=== PATIENT | female | born 1940 | race Caucasian/White ===

== ENCOUNTER 2016-08-28 17:32 | Observation (INO) | payer MEDICARE ==
[~2016-08-28] VITALS: Ht 154.9 cm; Wt 76.3 kg
[~2016-08-28 17:32] MED LIST: ADVAIR DISK2 IN; ADVAIR DISKU IN; ALBUTERO1 NEB; AMOXICILLIN/CL875 MG OR; ANTIVERT PO; ASPIRIN81 MG PO; CALCIUM600 M1 PO; CIPROFLOXACN500 MG OR; COUMADIN5 MG PO; CRESTOR10 MG PO; DARVOCET-N 100100 MG OR; DIGITEK0.25 MG PO; DULERA1 AE1; E 10001000 UNIT PO; FLORASTOR250 M1 PO; FUROSEMIDE20 MG PO; HYDROCHLOROT12.5 MG PO; LOPRESSOR 550 MG/TAB PO; MEDDOSEPAK OR; MEDDOSEPAK PO; METOPROL TAR25 MG PO; MULTIVITAMIN PO; NITROSTAT0.4 MG PO; PEPCID20 MG PO; POT CHLORIDE10 ME1 PO; PREDNISONE50 MG PO; PROAIR HFA IN; PROTONIX40 M2 PO; RANITIDINE150 MG PO; RANITIDINE75 M1 PO; SERTRALINE HCL25 MG PO; SERTRALINE25 MG OR; SIMVASTATIN20 MG OR; SINGLAIR 4 MG TA4 MG PO; SINGULAIR10 MG OR; VESICARE10 MG PO; WARFARIN2.5 MG PO; ZITHROMAX500 MG PO
[2016-08-28 19:15] LABS: HEMATOCRIT 41.1 % (37.0-47.0); HEMOGLOBIN 13.6 g/dl (12.0-16.0); IMMATURE GRANULOCYTES 0.3 % (0.0-1.0); MEAN CELL VOLUME 91.3 fL CALC (80.0-100.0); MEAN CORPUSCULAR HGB 30.2 pG CALC (26.0-32.0); MEAN CORPUSCULAR HGB CONC 33.1 g/L CALC (32.0-36.0); NEUT# 4.45 thou/uL (2.00-7.15); RED BLOOD COUNT 4.5 mill/uL (4.20-5.60)
[2016-08-28 19:28] LABS: ALBUMIN 4.4 g/dL (3.2-5.0); ALKALINE PHOSPHATASE 49 u/l (38-126); ANION GAP 18 (6-22 (CALC)); BILIRUBIN, TOTAL 0.6 mg/dL (0.0-1.4); BUN 26 mg/dL (8-23); BUN/CREATININE RATIO 32 (12-20 (CALC)); CALCIUM 9.1 mg/dL (8.4-10.2); CARBON DIOXIDE 27 mmol/l (22-30); CHLORIDE 103 mmol/l (95-108); CREATININE 0.8 mg/dL (0.5-1.0); GFR > 60 ML/MIN (>=60 (CALC)); GFR FOR AFR.AMER. > 60 ML/MIN (>=60 (CALC)); GLUCOSE 97 mg/dL (82-115); SGOT/AST 33 u/l (9-36); SGPT/ALT 31 u/l (11-66); SODIUM 144 mmol/l (137-146); TOTAL PROTEIN 7.2 g/dL (6.3-8.2)
[2016-08-28 19:35] LABS: INTERNATIONAL NORMALIZED RATIO 1.8 RATIO (0.7-1.3); PROTHROMBIN TIME 20.5 SECONDS (9.0-12.5)
[2016-08-28] MEDS ORDERED: VESICARE10 MG PO (19:38)
[2016-08-28 19:39] LABS: MYOGLOBIN 33 ng/mL (0 - 62)
[2016-08-28] MEDS ORDERED: METOPROL TAR25 MG PO (19:39)
[2016-08-28] MEDS ORDERED: LASIX 20 MG20 MG/TAB PO (19:40)
[2016-08-28] MEDS ORDERED: KLOR-CON M1010 MEQ PO (19:43)
[2016-08-28 22:06] VITALS: BP 144/86
[2016-08-29 00:02] VITALS: BP 106/76
[2016-08-29 03:55] VITALS: BP 121/79
[2016-08-29 06:20] LABS: INTERNATIONAL NORMALIZED RATIO 1.8 RATIO (0.7-1.3); PROTHROMBIN TIME 20.3 SECONDS (9.0-12.5)
[2016-08-29 06:26] LABS: ANION GAP 14 (6-22 (CALC)); BUN 21 mg/dL (8-23); BUN/CREATININE RATIO 29 (12-20 (CALC)); CALCIUM 8.9 mg/dL (8.4-10.2); CARBON DIOXIDE 26 mmol/l (22-30); CHLORIDE 103 mmol/l (95-108); CREATININE 0.7 mg/dL (0.5-1.0); GFR > 60 ML/MIN (>=60 (CALC)); GFR FOR AFR.AMER. > 60 ML/MIN (>=60 (CALC)); GLUCOSE 115 mg/dL (82-115); POTASSIUM 3.6 mmol/l (3.5-5.1); SODIUM 140 mmol/l (137-146)
[2016-08-29 06:29] LABS: CHOLESTEROL HDL RATIO 3.7 (<4.4 (CALC))
[2016-08-29 07:24] VITALS: BP 113/70
[2016-08-29] MEDS ORDERED: ISOSORBIDE MONO30 MG PO (12:29)
[2016-08-29 12:39] VITALS: BP 112/60
== END 2016-08-29 13:00 | disposition home or self-care (01) ==
LOC: ENPENDDIS → ED 17:32 → ED-I 20:00 → ED 20:39 → ICU 20:40
PROVIDERS: Emergency Medicine; Internal Medicine; ADMIT Internal Medicine; ATTEND Internal Medicine
DX: I25.110 Atherosclerotic heart disease of native coronary artery with unstable angina pectoris (principal); I11.9 Hypertensive heart disease without heart failure; I48.0 Paroxysmal atrial fibrillation; I08.3 Combined rheumatic disorders of mitral, aortic and tricuspid valves; E66.9 Obesity, unspecified; E78.5 Hyperlipidemia, unspecified; J44.9 Chronic obstructive pulmonary disease, unspecified; Z85.41 Personal history of malignant neoplasm of cervix uteri; Z87.891 Personal history of nicotine dependence; Z82.49 Family history of ischemic heart disease and other diseases of the circulatory system; Z79.01 Long term (current) use of anticoagulants; Z68.31 Body mass index [BMI] 31.0-31.9, adult

== ENCOUNTER 2017-02-22 10:25 | Observation (INO) | payer MEDICARE ==
[~2017-02-22] VITALS: Ht 154.9 cm; Wt 76.5 kg
[~2017-02-22 10:25] MED LIST changes: +ISOSORBIDE MONO30 MG PO; +KLOR-CON M1010 MEQ PO; +LASIX 20 MG20 MG/TAB PO
[2017-02-22] MEDS ORDERED: WARFARIN1 MG PO ×2 (10:54→10:55)
[2017-02-22 11:05] LABS: HEMATOCRIT 40.3 % (37.0-47.0); HEMOGLOBIN 13.3 g/dl (12.0-16.0); IMMATURE GRANULOCYTES 0.2 % (0.0-1.0); MEAN CELL VOLUME 92.2 fL CALC (80.0-100.0); MEAN CORPUSCULAR HGB 30.4 pG CALC (26.0-32.0); NEUT# 2.99 thou/uL (2.00-7.15); RED BLOOD COUNT 4.37 mill/uL (4.20-5.60); RED CELL DISTRI WIDTH 12.2 % (11.5-15.5)
[2017-02-22 11:17] LABS: ALBUMIN 4.1 g/dL (3.2-5.0); ALKALINE PHOSPHATASE 64 u/l (38-126); ANION GAP 15 (6-22 (CALC)); BILIRUBIN, TOTAL 0.6 mg/dL (0.0-1.4); BUN 18 mg/dL (8-23); BUN/CREATININE RATIO 26 (12-20 (CALC)); CALCIUM 9.4 mg/dL (8.4-10.2); CARBON DIOXIDE 28 mmol/l (22-30); CHLORIDE 105 mmol/l (95-108); CREATININE 0.7 mg/dL (0.5-1.0); GFR > 60 ML/MIN (>=60 (CALC)); GFR FOR AFR.AMER. > 60 ML/MIN (>=60 (CALC)); GLUCOSE 107 mg/dL (82-115); POTASSIUM 3.9 mmol/l (3.5-5.1); SGOT/AST 28 u/l (9-36); SGPT/ALT 22 u/l (11-66); SODIUM 144 mmol/l (137-146); TOTAL PROTEIN 6.4 g/dL (6.3-8.2)
[2017-02-22 11:22] LABS: PROTHROMBIN TIME 22.8 SECONDS (9.0-12.5)
[2017-02-22 11:29] LABS: MYOGLOBIN 38 ng/mL (0 - 62)
[2017-02-22 11:35] LABS: URINE BILIRUBIN - DIPSTICK NEGATIVE (NEGATIVE); URINE BLOOD DIPSTICK NEGATIVE (NEGATIVE); URINE COLOR YELLOW; URINE GLUCOSE - DIPSTICK NEGATIVE (NEGATIVE); URINE KETONE NEGATIVE (NEGATIVE); URINE LEUK ESTERASE NEGATIVE (NEGATIVE); URINE NITRITE - DIPSTICK NEGATIVE (Negative); URINE PH 6.5 (4.5-8.0); URINE PROTEIN - DIPSTICK NEGATIVE (NEG-TRACE); URINE UROBILINOGEN - DIPSTICK 0.2 E.U./dL (0.2)
[2017-02-22 11:39] LABS: URINE CLARITY CLEAR
[2017-02-22 19:05] VITALS: BP 130/70
[2017-02-23 00:10] VITALS: BP 119/64
[2017-02-23 04:05] VITALS: BP 116/64
[2017-02-23 06:15] LABS: HEMATOCRIT 40.3 % (37.0-47.0); HEMOGLOBIN 12.9 g/dl (12.0-16.0); MEAN CELL VOLUME 94.2 fL CALC (80.0-100.0); MEAN CORPUSCULAR HGB 30.1 pG CALC (26.0-32.0); RED BLOOD COUNT 4.28 mill/uL (4.20-5.60); RED CELL DISTRI WIDTH 12.2 % (11.5-15.5)
[2017-02-23 06:21] LABS: ANION GAP 13 (6-22 (CALC)); BUN 20 mg/dL (8-23); BUN/CREATININE RATIO 24 (12-20 (CALC)); CALCULATED LDLCHOLESTEROL 61 mg/dL (62-129 (CALC)); CARBON DIOXIDE 29 mmol/l (22-30); CHLORIDE 107 mmol/l (95-108); CREATININE 0.8 mg/dL (0.5-1.0); GFR > 60 ML/MIN (>=60 (CALC)); GFR FOR AFR.AMER. > 60 ML/MIN (>=60 (CALC)); GLUCOSE 106 mg/dL (82-115); HDL CHOLESTEROL 49 mg/dL (>=40); POTASSIUM 4.4 mmol/l (3.5-5.1); SODIUM 144 mmol/l (137-146); TOTAL CHOLESTEROL 146 mg/dl (0-199); TOTAL TRIGLYCERIDES 182 mg/dl (30-149); VLDL CHOLESTROL 36 mg/dl (0-48 (CALC))
[2017-02-23 06:22] LABS: INTERNATIONAL NORMALIZED RATIO 1.9 RATIO (0.7-1.3)
[2017-02-23 09:00] VITALS: BP 119/61
[2017-02-23 10:57] VITALS: BP 117/74
[2017-02-23] MEDS ORDERED: ELIQUIS5 MG PO (15:07)
== END 2017-02-23 15:45 | disposition home or self-care (01) ==
LOC: ED 10:25 → ED-I 12:38 → ED 13:14 → MS2 13:15
PROVIDERS: Emergency Medicine; Internal Medicine; ADMIT Internal Medicine; ATTEND Internal Medicine
DX: R41.82 Altered mental status, unspecified (principal); R47.1 Dysarthria and anarthria; R42 Dizziness and giddiness; H53.8 Other visual disturbances; I48.0 Paroxysmal atrial fibrillation; E78.5 Hyperlipidemia, unspecified; J44.9 Chronic obstructive pulmonary disease, unspecified; Z85.41 Personal history of malignant neoplasm of cervix uteri; Z87.891 Personal history of nicotine dependence; Z79.01 Long term (current) use of anticoagulants

== ENCOUNTER 2018-12-22 14:41 | Emergency (ER) | payer MEDICARE ==
[~2018-12-22] VITALS: Ht 154.9 cm; Wt 85.0 kg
[~2018-12-22 14:41] MED LIST changes: +ELIQUIS5 MG PO; +WARFARIN1 MG PO
[2018-12-22 15:21] LABS: IMMATURE GRANULOCYTES 0.7 % (0.0-5.0); MEAN CORPUSCULAR HGB 28.4 pG CALC (26.0-32.0); MEAN CORPUSCULAR HGB CONC 33.1 g/L CALC (32.0-36.0); NEUT# 3.36 thou/uL (2.00-7.15); RED BLOOD COUNT 5.5 mill/uL (4.20-5.60); RED CELL DISTRI WIDTH 12.5 % (11.5-15.5)
[2018-12-22 15:22] LABS: HEMATOCRIT 47.2 % (37.0-47.0); HEMOGLOBIN 15.6 g/dl (12.0-16.0); MEAN CELL VOLUME 85.8 fL CALC (80.0-100.0)
[2018-12-22 15:46] LABS: BUN 22 mg/dL (8-23); BUN/CREATININE RATIO 25 (12-20 (CALC)); CREATININE 0.9 mg/dL (0.5-1.0); GFR > 60 ML/MIN (>=60 (CALC)); GFR FOR AFR.AMER. > 60 ML/MIN (>=60 (CALC))
[2018-12-22 15:51] LABS: ANION GAP 14 (6-22 (CALC)); CARBON DIOXIDE 39 mmol/l (22-30); CHLORIDE 74 mmol/l (95-108); POTASSIUM 2.6 mmol/l (3.5-5.1); SODIUM 124 mmol/l (137-146)
[2018-12-22] MEDS ORDERED: MUCINEX600 MG PO (18:52)
[2018-12-22] MEDS ORDERED: ELIQUIS5 MG PO (18:52)
[2018-12-22] MEDS ORDERED: BUMETANIDE2 MG PO (18:53)
[2018-12-22] MEDS ORDERED: ASPIRIN81 MG PO (18:54)
[2018-12-22] MEDS ORDERED: CIPROFLOXACN500 MG PO (18:54)
[2018-12-22] MEDS ORDERED: PROTONIX40 M2 PO (18:56)
[2018-12-22] MEDS ORDERED: DIGOXIN0.125 MG PO (18:56)
[2018-12-22] MEDS ORDERED: EQL CLEARLAX PO (18:57)
[2018-12-22] MEDS ORDERED: ROSUVASTATIN CA10 MG PO (18:58)
[2018-12-22 20:51] VITALS: BP 128/64
== END 2018-12-22 20:50 | disposition short-term general hospital (02) ==
LOC: ED 14:41 → ED-I 16:18 → ED 20:50
PROVIDERS: Family Medicine
PROC: 0T9B70Z Drainage of Bladder with Drainage Device, Via Natural or Artificial Opening (ICD-10-PCS; principal; 2018-12-22)
PROC: 02HV33Z Insertion of Infusion Device into Superior Vena Cava, Percutaneous Approach (ICD-10-PCS; 2018-12-22)
DX: I50.9 Heart failure, unspecified (principal); J44.1 Chronic obstructive pulmonary disease with (acute) exacerbation; E87.6 Hypokalemia; E87.1 Hypo-osmolality and hyponatremia; I25.2 Old myocardial infarction; Z95.1 Presence of aortocoronary bypass graft
CPT/HCPCS: J3475; Q9967

== ENCOUNTER 2018-12-30 16:03 | Inpatient (IN) | payer MEDICARE ==
[~2018-12-30] VITALS: Ht 149.9 cm; Wt 70.0 kg
[2018-12-30] VITALS (7 sets, daily range): BP systolic 106–125; BP diastolic 53–73
[~2018-12-30 16:03] MED LIST changes: +BUMETANIDE2 MG PO; +CIPROFLOXACN500 MG PO; +DIGOXIN0.125 MG PO; +EQL CLEARLAX PO; +MUCINEX600 MG PO; +ROSUVASTATIN CA10 MG PO
[2018-12-30 17:57] LABS: IMMATURE GRANULOCYTES 1.3 % (0.0-5.0); MEAN CELL VOLUME 85.1 fL CALC (80.0-100.0); MEAN CORPUSCULAR HGB 29.1 pG CALC (26.0-32.0); MEAN CORPUSCULAR HGB CONC 34.2 g/L CALC (32.0-36.0); NEUT# 9.95 thou/uL (2.00-7.15); RED BLOOD COUNT 3.16 mill/uL (4.20-5.60); RED CELL DISTRI WIDTH 12.6 % (11.5-15.5)
[2018-12-30 17:59] LABS: HEMATOCRIT 26.9 % (37.0-47.0); HEMOGLOBIN 9.2 g/dl (12.0-16.0)
[2018-12-30 18:13] LABS: ALBUMIN 3.9 g/dL (3.2-5.0); CREATININE 1.2 mg/dL (0.5-1.0); MAGNESIUM 1.8 mg/dL (1.6-2.3); TOTAL PROTEIN 6.8 g/dL (6.3-8.2)
[2018-12-30 18:28] LABS: BILIRUBIN, TOTAL 1.3 mg/dL (0.0-1.4); POTASSIUM 2.2 mmol/l (3.5-5.1)
[2018-12-30 18:43] LABS: TSH, 3RD GENERATION 0.84 uIU/mL (0.47 - 4.68)
[2018-12-30 23:53] LABS: POTASSIUM 2.1 mmol/l (3.5-5.1)
[2018-12-31] VITALS (21 sets, daily range): BP systolic 86–121; BP diastolic 42–64
[2018-12-31 05:01] LABS: HEMATOCRIT 28.1 % (37.0-47.0); HEMOGLOBIN 9.4 g/dl (12.0-16.0); IMMATURE GRANULOCYTES 1.4 % (0.0-5.0); MEAN CELL VOLUME 85.9 fL CALC (80.0-100.0); MEAN CORPUSCULAR HGB 28.7 pG CALC (26.0-32.0); MEAN CORPUSCULAR HGB CONC 33.5 g/L CALC (32.0-36.0); NEUT# 8.67 thou/uL (2.00-7.15); RED BLOOD COUNT 3.27 mill/uL (4.20-5.60); RED CELL DISTRI WIDTH 12.5 % (11.5-15.5)
[2018-12-31 05:16] LABS: ALBUMIN 3.3 g/dL (3.2-5.0); BILIRUBIN, TOTAL 1.1 mg/dL (0.0-1.4); CREATININE 1.1 mg/dL (0.5-1.0); POTASSIUM 2.6 mmol/l (3.5-5.1); TOTAL PROTEIN 6.1 g/dL (6.3-8.2)
[2018-12-31 13:42] LABS: ALBUMIN 3.3 g/dL (3.2-5.0); BUN 27 mg/dL (8-23); CARBON DIOXIDE 34 mmol/l (22-30); CHLORIDE 79 mmol/l (95-108); CREATININE 0.9 mg/dL (0.5-1.0); GFR > 60 ML/MIN (>=60 (CALC)); GFR FOR AFR.AMER. > 60 ML/MIN (>=60 (CALC)); POTASSIUM 3.9 mmol/l (3.5-5.1); SODIUM 124 mmol/l (137-146)
[2019-01-01] VITALS (22 sets, daily range): BP systolic 93–122; BP diastolic 47–77
[2019-01-01 05:23] LABS: ALBUMIN 3.1 g/dL (3.2-5.0); BUN 22 mg/dL (8-23); CARBON DIOXIDE 38 mmol/l (22-30); CHLORIDE 83 mmol/l (95-108); CREATININE 0.9 mg/dL (0.5-1.0); GFR > 60 ML/MIN (>=60 (CALC)); GFR FOR AFR.AMER. > 60 ML/MIN (>=60 (CALC)); SODIUM 130 mmol/l (137-146)
[2019-01-02] VITALS (12 sets, daily range): BP systolic 98–126; BP diastolic 50–85
[2019-01-02 05:41] LABS: HEMOGLOBIN 7.7 g/dl (12.0-16.0); MEAN CORPUSCULAR HGB 28.7 pG CALC (26.0-32.0); MEAN CORPUSCULAR HGB CONC 30.8 g/L CALC (32.0-36.0); RED BLOOD COUNT 2.68 mill/uL (4.20-5.60); RED CELL DISTRI WIDTH 13.2 % (11.5-15.5)
[2019-01-02 05:50] LABS: ANION GAP 10 (6-22 (CALC)); BUN 22 mg/dL (8-23); BUN/CREATININE RATIO 30 (12-20 (CALC)); CARBON DIOXIDE 37 mmol/l (22-30); CHLORIDE 89 mmol/l (95-108); CREATININE 0.8 mg/dL (0.5-1.0); GFR > 60 ML/MIN (>=60 (CALC)); GFR FOR AFR.AMER. > 60 ML/MIN (>=60 (CALC)); MAGNESIUM 1.9 mg/dL (1.6-2.3); SODIUM 132 mmol/l (137-146)
[2019-01-02 05:53] LABS: POTASSIUM 3.7 mmol/l (3.5-5.1)
[2019-01-02 05:58] LABS: MEAN CELL VOLUME 93.3 fL CALC (80.0-100.0)
[2019-01-03 05:44] VITALS: BP 150/66
[2019-01-03 05:56] LABS: HEMATOCRIT 30.3 % (37.0-47.0); HEMOGLOBIN 9.6 g/dl (12.0-16.0); MEAN CELL VOLUME 92.7 fL CALC (80.0-100.0); MEAN CORPUSCULAR HGB 29.4 pG CALC (26.0-32.0); MEAN CORPUSCULAR HGB CONC 31.7 g/L CALC (32.0-36.0); RED BLOOD COUNT 3.27 mill/uL (4.20-5.60); RED CELL DISTRI WIDTH 13.2 % (11.5-15.5)
[2019-01-03 06:11] LABS: ANION GAP 10 (6-22 (CALC)); BUN 26 mg/dL (8-23); BUN/CREATININE RATIO 36 (12-20 (CALC)); CARBON DIOXIDE 38 mmol/l (22-30); CHLORIDE 90 mmol/l (95-108); CREATININE 0.7 mg/dL (0.5-1.0); GFR > 60 ML/MIN (>=60 (CALC)); GFR FOR AFR.AMER. > 60 ML/MIN (>=60 (CALC)); POTASSIUM 3.7 mmol/l (3.5-5.1); SODIUM 134 mmol/l (137-146)
[2019-01-03 07:34] VITALS: BP 126/65
[2019-01-03 11:00] VITALS: BP 123/64
[2019-04-07] MEDS ORDERED: MEDDOSEPAK PO (09:11)
== END 2019-01-03 14:19 | disposition home health service (06) | DRG 641 ==
LOC: ED 16:03 → ED-I 19:10 → ED 19:25 → MS2 19:26 → ICU 21:19 → MS2 01-02 11:20
PROVIDERS: Family Medicine; Internal Medicine; Internal Medicine Nephrology; ADMIT Internal Medicine; ATTEND Internal Medicine
PROC: 30233N1 Transfusion of Nonautologous Red Blood Cells into Peripheral Vein, Percutaneous Approach (ICD-10-PCS; principal; 2019-01-02)
DX: E87.1 Hypo-osmolality and hyponatremia (principal); N17.9 Acute kidney failure, unspecified; I50.22 Chronic systolic (congestive) heart failure; E87.6 Hypokalemia; D64.9 Anemia, unspecified; I11.0 Hypertensive heart disease with heart failure; I50.9 Heart failure, unspecified; I48.0 Paroxysmal atrial fibrillation; E87.3 Alkalosis; T50.1X5A Adverse effect of loop [high-ceiling] diuretics, initial encounter; E78.5 Hyperlipidemia, unspecified; I25.2 Old myocardial infarction; J44.9 Chronic obstructive pulmonary disease, unspecified; Z95.3 Presence of xenogenic heart valve; E87.8 Other disorders of electrolyte and fluid balance, not elsewhere classified; Z79.01 Long term (current) use of anticoagulants; Z87.891 Personal history of nicotine dependence; I10 Essential (primary) hypertension
CPT/HCPCS: P9016

== ENCOUNTER 2019-01-28 06:54 | Observation (INO) | payer MEDICARE ==
[~2019-01-28] VITALS: Ht 149.9 cm; Wt 66.0 kg
--- NOTE | 2019-01-28 06:54 | NUR ---
PT TO ROOM FOR TRIAGE AND ASSESSMENT; PT C/O YOCASTA MIDSTERNAL CP RATING 10 OUT OF 10; LABORED RAPID BREATHING NOTED; MONITORING DEVICES APPLIED; EKG COMPLETED AND DR WHALEY AT BEDSIDE FOR ASSESSMENT; IV INITIATED TO LAC; WILL CONTINUE TO MONITOR
--- NOTE | 2019-01-28 07:20 | NUR ---
PT MEDICATED PER MAR; PT STATES PAIN IS NOW A 2 OUT OF 10; VSS; SPOUSE AT BEDSIDE; WILL CONTINUE TO MONITOR
[2019-01-28 07:33] LABS: HEMATOCRIT 31.7 % (37.0-47.0); HEMOGLOBIN 10.1 g/dl (12.0-16.0); IMMATURE GRANULOCYTES 0.5 % (0.0-5.0); MEAN CELL VOLUME 90.6 fL CALC (80.0-100.0); MEAN CORPUSCULAR HGB 28.9 pG CALC (26.0-32.0); MEAN CORPUSCULAR HGB CONC 31.9 g/L CALC (32.0-36.0); NEUT# 8.81 thou/uL (2.00-7.15); RED BLOOD COUNT 3.5 mill/uL (4.20-5.60); RED CELL DISTRI WIDTH 13.5 % (11.5-15.5)
[2019-01-28 07:47] LABS: ANION GAP 14 (6-22 (CALC)); BUN 14 mg/dL (8-23); BUN/CREATININE RATIO 18 (12-20 (CALC)); CARBON DIOXIDE 26 mmol/l (22-30); CHLORIDE 101 mmol/l (95-108); CREATININE 0.8 mg/dL (0.5-1.0); GFR > 60 ML/MIN (>=60 (CALC)); GFR FOR AFR.AMER. > 60 ML/MIN (>=60 (CALC)); POTASSIUM 3.6 mmol/l (3.5-5.1); SODIUM 137 mmol/l (137-146)
--- NOTE | 2019-01-28 08:20 | NUR ---
PT RESTING ON STRETCHER; PT APPEARS MORE COMPFRTABLE AT THIS TIME; BREATHING EVEN AND UNLABORED; VSS; PT DENIES ANY CP AT THIS TIME
--- NOTE | 2019-01-28 09:20 | NUR ---
PT RESTING QUIETLY ON STRETCHER; NO S/S OF DISTRESS NOTED; PT DENIES CP AT THIS TIME; AWARE OF POC TO ADMIT; PT AND FAMILY AGREEABLE; VSS; PT DENIES ANY NEEDS AT THIS TIME
--- NOTE | 2019-01-28 10:03 | NUR ---
REPORT CALLED TO BRODIE STOREY
[2019-01-28 10:20] VITALS: BP 126/63
--- NOTE | 2019-01-28 10:20 | NUR ---
Admission Note Report Given to: BRODIE STOREY Transported by: Wheelchair X Stretcher Transported with: X Nurse Transporter X Patent IV X O2 X [place] Machine Operator Helper
--- NOTE | 2019-01-28 10:20 | NUR ---
PT ARRIVED TO ICU 6 VIA STRETCHER ACCOMPANIED BY ER NURSE. PTABLE TO AMBULATE WITH MINIMAL ASSIST TO BED. PT THEN ASSISTED TO BATHROOM TO VOID AND ASSISTED BACK TO BED. PT IS ALERT AND ORIENTED X3. ADMISSION ASSESSMENT COMPLETED AT THIS TIME. PT ADDMITTED FOR CHEST PAIN. DENIES CHEST PAIN AT THIS TIME. IV PATENT X1. ORIENTED PT TO ROOM AND UNIT. CALL LIGHT IN REACH. WILL CONTINUE TO MONITOR.
--- NOTE | 2019-01-28 11:30 | NUR ---
PT SET UP FOR NOON MEAL
--- NOTE | 2019-01-28 11:53 | NUR ---
LAB AT BEDSIDE FOR TROPONIN DRAW
[2019-01-28 14:30] VITALS: BP 127/70
--- NOTE | 2019-01-28 16:23 | NUR ---
PT RESTING IN BED WATCHING TV. RESP ARE EVEN AND UNLABORED. NO DISTRESS NOTED. CALL LIGHT IN REACH. WILL CONTINUE TO MONITOR.
--- NOTE | 2019-01-28 17:43 | NUR ---
PT SET UP FOR [PM MEAL
--- NOTE | 2019-01-28 18:07 | NUR ---
LAB AT BEDSIDE AT THIS TIME
--- NOTE | 2019-01-28 18:14 | NUR ---
DR FALCON AT BEDSIDE AT THIS TIME
--- NOTE | 2019-01-28 19:10 | NUR ---
REPORT RECEIVED FROM BRODIE STOREY. PT SITTING UP IN BED WATCHING TV; ALERT AND ORIENTED. DENIES PAIN CURRENTLY. RESPIRATIONS EVEN AND UNLABORED ON 2L VIA NC; OXYGEN REMOVED AND PT SPO2 IS 96% ON ROOM AIR; WILL LEAVE ON ROOM AIR AND MONITOR. ASSESSMENT COMPLETED AT THIS TIME; LUNGS ARE DIMINISHED. PT HAS A COUGH THAT SHE REPORTS HAS BEEN PRODUCTIVE WITH WHITE THICK MUCUS; HEART RATE IRREGULAR; OTHERWISE ASSESSMENT IS NEGATIVE. PT UP TO AMBULATE INDEPENDENTLY TO BATHROOM AND BACK INTO BED. PLAN OF CARE REVIEWED. PT ENCOURAGED TO VERBALIZE CONCERNS. STATES UNDERSTANDING. SAFETY MEASURES IN PLACE. CALL LIGHT WITHIN REACH.
[2019-01-28 20:00] VITALS: BP 132/71
[2019-01-28 22:00] VITALS: BP 145/76
--- NOTE | 2019-01-28 22:44 | NUR ---
HOME MED ORDERS RECEIVED; METOPROLOL AND ELIQUIS GIVEN. PT CURRENTLY NSR WITH IVCD ON TELEMETRY HR IN THE 70S. PT HAS NO REQUESTS OR CONCERNS AT THIS ITME.
[2019-01-29] VITALS: BP 129/80
--- NOTE | 2019-01-29 00:20 | NUR ---
LAB AT BEDSIDE FOR TROPONIN.
[2019-01-29 02:00] VITALS: BP 127/70
--- NOTE | 2019-01-29 03:51 | NUR ---
PT ASLEEP WITH NO SIGNS OF DISTRESS. RESPIRATIONS EVEN UNLABORED ON ROOM AIR; SP02 96%. USES CALL LIGHT PRN FOR ASSISTANCE AND AMBULATES TO THE BATHROOM. SAFETY MEASURES IN PLACE. CALL LIGHT WITHIN REACH.
[2019-01-29 04:00] VITALS: BP 145/78
[2019-01-29 06:00] VITALS: BP 140/77
--- NOTE | 2019-01-29 06:45 | NUR ---
RECIEVED REPORT FROM BRODIE WHITE. ASSUMED PT CARE.
[2019-01-29 08:00] VITALS: BP 152/79
--- NOTE | 2019-01-29 08:00 | NUR ---
PT RESTING IN BED. A&OX4. ABLE TO MAKE NEEDS KNOWN. PT DENIES CP, SOB OR DISTRESS AT THIS TIME. PT STATED SHE IS READY TO GO HOME. SR ON TELEMETRY WITH 1* AVB, HR 88. RESPIRATIONS EVEN/UNLABORED, SA02@95%RA, LS WITH EXP WHEEZING THROUGHOUT. ABDOMEN SOFT, NON-TENDER, BSX4 ACTIVE, LBM 11-20-19. CALL LIGHT IN REACH. WILL MONITOR.
[2019-01-29 09:12] VITALS: BP 152/79
--- NOTE | 2019-01-29 09:30 | NUR ---
DR. FALCON AT BEDSIDE FOR ASSESSMENT AND TO DISCUSS PLAN OF CARE. NEW ORDERS RECIEVED. WILL MONITOR.
[2019-01-29] MEDS ORDERED: PREDNISONE10 MG PO (09:32)
[2019-01-29] MEDS ORDERED: ZITHROMAX500 MG PO (09:32)
--- NOTE | 2019-01-29 11:00 | NUR ---
IV site discontinued, cath intact. No edema , no redness, voices no discomfort.
--- NOTE | 2019-01-29 11:49 | NUR ---
Discharge instructions given. Patient verbalizes understanding of same. Discharged in stable condition via Wheelchair to Home with family. All belongings sent with pt. PAPER PRESCRIPTIONS SENT HOME WITH PT.
[2019-04-07] MEDS ORDERED: MEDDOSEPAK PO (09:11)
== END 2019-01-29 11:49 | disposition home or self-care (01) ==
LOC: ED 06:54 → ED-I 08:09 → ED 08:22 → ICU 08:23
PROVIDERS: Family Medicine; ADMIT Internal Medicine; ATTEND Internal Medicine
DX: I48.0 Paroxysmal atrial fibrillation (principal); R07.89 Other chest pain; J44.1 Chronic obstructive pulmonary disease with (acute) exacerbation; I11.0 Hypertensive heart disease with heart failure; I50.9 Heart failure, unspecified; E78.5 Hyperlipidemia, unspecified; I25.10 Atherosclerotic heart disease of native coronary artery without angina pectoris; I25.2 Old myocardial infarction; Z99.81 Dependence on supplemental oxygen; Z95.3 Presence of xenogenic heart valve; Z79.01 Long term (current) use of anticoagulants; Z87.891 Personal history of nicotine dependence

== ENCOUNTER 2019-04-06 09:34 | Observation (INO) | payer MEDICARE ==
[~2019-04-06] VITALS: Ht 154.9 cm; Wt 67.2 kg
[~2019-04-06 09:34] MED LIST changes: +PREDNISONE10 MG PO
--- NOTE | 2019-04-06 09:38 | NUR ---
PT TO ROOM VIA WHEELCHAIR.
[2019-04-06 10:03] LABS: IMMATURE GRANULOCYTES 0.2 % (0.0-5.0); MEAN CORPUSCULAR HGB 28.8 pG CALC (26.0-32.0); MEAN CORPUSCULAR HGB CONC 31.7 g/L CALC (32.0-36.0); NEUT# 2.99 thou/uL (2.00-7.15); RED BLOOD COUNT 4.23 mill/uL (4.20-5.60); RED CELL DISTRI WIDTH 13.2 % (11.5-15.5)
[2019-04-06 10:08] LABS: HEMATOCRIT 38.5 % (37.0-47.0); HEMOGLOBIN 12.2 g/dl (12.0-16.0)
--- NOTE | 2019-04-06 10:10 | NUR ---
GA COMPLAINS OF STERNAL CHEST PAIN STARTING AT 0100 UNRELIEVED BY NTG. SKIN PINK WARM AND DRY. PT AO X 3. PT HAS COPD AND REPORTS THAT HER COUGH AND BREATHING ARE NO WORSE THAN USUAL. AMBULATORY TO ROOM WITHOUT DIFFICULTY. AT BEDSIDE. CHEST PAIN CURRENTLY 10/18
[2019-04-06 10:23] LABS: ALKALINE PHOSPHATASE 69 u/l (38-126); ANION GAP 12 (6-22 (CALC)); BUN 17 mg/dL (8-23); BUN/CREATININE RATIO 18 (12-20 (CALC)); CARBON DIOXIDE 29 mmol/l (22-30); CHLORIDE 104 mmol/l (95-108); CREATININE 0.9 mg/dL (0.5-1.0); GFR > 60 ML/MIN (>=60 (CALC)); GFR FOR AFR.AMER. > 60 ML/MIN (>=60 (CALC)); POTASSIUM 3.3 mmol/l (3.5-5.1); SGOT/AST 24 u/l (9-36); SODIUM 141 mmol/l (137-146); TOTAL PROTEIN 7.1 g/dL (6.3-8.2)
[2019-04-06 10:33] LABS: ALBUMIN 4.2 g/dL (3.2-5.0); BILIRUBIN, TOTAL 0.5 mg/dL (0.0-1.4)
[2019-04-06 10:37] LABS: MYOGLOBIN 34 ng/mL (0 - 62)
--- NOTE | 2019-04-06 11:05 | NUR ---
MD AWARE THAT LABS ARE BACK. PT MEDICATED FOR PAIN AND POSITIONED FOR COMFORT.
[2019-04-06] MEDS ORDERED: VESICARE10 MG PO (11:24)
--- NOTE | 2019-04-06 11:35 | NUR ---
PT AWARE THAT SHE WILL BE STAYING IN THE HOSPITAL. PURSE GIVEN TO . CLOTHING SENT TO ROOM WITH PATIENT. PT REPORTS MODERATE PAIN RELIEF AFTER TORADOL
--- NOTE | 2019-04-06 12:55 | NUR ---
MED SURG UNABLE TO TAKE REPORT AT THIS TIME
--- NOTE | 2019-04-06 12:55 | NUR ---
PT RESTING COMFORTABLY. WAITING ADMISSION
--- NOTE | 2019-04-06 13:00 | NUR ---
pt aware of awaiting transport to [facility]
--- NOTE | 2019-04-06 13:13 | NUR ---
CALLED REPORT TO [facility] RAMIREZ [facility]
--- NOTE | 2019-04-06 13:20 | NUR ---
Admission Note Report Given to: ASHLEY DIANE Transported by: X Wheelchair Stretcher Transported with: X Nurse Transporter X Patent IV O2 X Quote Clerk Location: ICU X [facility] PT TO ROOM 282 IN STABLE CONDITION. BEDSIDE HANDOFF TO ASHLEY DIANE.
[2019-04-06 13:30] VITALS: BP 167/88
--- NOTE | 2019-04-06 13:30 | NUR ---
PT ARRIVED VIA WC WITH STAFF. IV AND TELE MONITOR IN PLACE.
--- NOTE | 2019-04-06 14:30 | NUR ---
ASSESSMENT IS COMPLTED: IV SITE IS FREE FROM REDNESS OR EDEMA. HR IS REG,PULSES ARE STRONG X4, ABD IS SOFT WITH ACTIVE BS. BREATH SOUNDS ARE CLER, BILATERALLY, NO DISTRESS NOTED. TELE MONITOR IN PLACE.
[2019-04-06 15:26] VITALS: BP 125/73
[2019-04-06 18:50] VITALS: BP 173/77
--- NOTE | 2019-04-06 20:10 | NUR ---
PT IN BED WATCHING TV, NO S/O DISTRESS NOTED. DENIES ANY NEEDS AT THIS TIME. DENIES PAIN/N/V.
--- NOTE | 2019-04-06 21:15 | NUR ---
PT MEDICATED ORDERS PROVIDE AND ASSESSMENT COMPLETED AT THIS TIME. PT LOCX4, TALKING ABOUT RECENT STRESSES, FAMILY DEATHS/LOSS AND HUSBANDS MEDICAL SCARES. PT DOES NOT APPEAR DISTRESSED. PT ENCOURAGED TO CALL NEEDS ARISE AND REMINDED OF CALL SYSTEM. FRESH PO FLUIDS PROVIDED AT THIS TIME. CALL LIGHT W/IN REACH.
[2019-04-07 00:05] VITALS: BP 169/80
[2019-04-07 01:15] VITALS: BP 155/78
--- NOTE | 2019-04-07 02:50 | NUR ---
PT SLEEPING, AWOKE TO MY ENTERING ROOM. NO S/O DISTRESS NOTED. DENIES ANY NEEDS.
[2019-04-07 03:50] VITALS: BP 194/82
--- NOTE | 2019-04-07 04:15 | NUR ---
PT MEDICATED FOR ELEVATED BP ORDERS PROVIDE. IV SITE RECEIVED MEDICATION AND FLUSHED W/RESISTANCE. SITE APPEARS SLIGHTLY EDEMATOUS DISTAL TO SITE ALTHOUGH BLOOD RETURN IS RECEIVED. DISCUSSED W/PT WHO AGREED IT WAS BEST TO OBTAIN NEW IV SITE.
[2019-04-07 05:30] VITALS: BP 135/76
--- NOTE | 2019-04-07 05:40 | NUR ---
BP REEVALUATED TO BE 135/76,HR77. PT AWAKE AND WATCHING THE NEWS. WARM COMPRESS PROVIDED FOR OLD IV SITE/SLIGHTLY REDDENED AND EDEMATOUS.
[2019-04-07 08:15] VITALS: BP 142/71
--- NOTE | 2019-04-07 08:15 | NUR ---
ASSESSMENT IS COMPLETED: IV SITE IS FREE FROM REDNESS OR EDEMA. HR IS REG,PULSES ARE STRONG X4, ABD IS SOFT WITH ACTIVE BS. BREATH SOUNDS ARE CLEAR, BILATERALLY. TELE MONITOR IN PLACE. CONTINUE TO OBSERVE AND MONITOR.
[2019-04-07] MEDS ORDERED: MEDDOSEPAK PO ×2 (09:11)
[2019-04-07 09:40] VITALS: BP 142/71
--- NOTE | 2019-04-07 10:35 | NUR ---
IV SITE DISCONTINUED CATHETER INTACT. FAMILY IS ON THEIR WAY
--- NOTE | 2019-04-07 10:45 | NUR ---
PT RECEIVED DISCHARGE INSTRUCTIONS IV SITE DISCONTINUED CATHETER INTACT. NO REDNESS OR EDMEA
--- NOTE | 2019-04-07 10:50 | NUR ---
Discharge instructions given. Patient verbalizes understanding of same. Discharged in stable condition via Wheelchair to Home with family. All belongings sent with pt.
== END 2019-04-07 10:46 | disposition home or self-care (01) ==
LOC: ED 09:34 → ED-I 11:00 → ED 11:09 → MS2 11:10
PROVIDERS: Emergency Medicine; ADMIT Internal Medicine; ATTEND Internal Medicine
DX: R07.9 Chest pain, unspecified (principal); I48.0 Paroxysmal atrial fibrillation; I25.10 Atherosclerotic heart disease of native coronary artery without angina pectoris; I11.0 Hypertensive heart disease with heart failure; I50.9 Heart failure, unspecified; J44.9 Chronic obstructive pulmonary disease, unspecified; E78.5 Hyperlipidemia, unspecified; Z87.891 Personal history of nicotine dependence; Z99.81 Dependence on supplemental oxygen; Z95.3 Presence of xenogenic heart valve; Z79.01 Long term (current) use of anticoagulants
CPT/HCPCS: G0378

== ENCOUNTER 2019-10-02 14:08 | Emergency (ER) | payer MEDICARE ==
[~2019-10-02] VITALS: Ht 154.9 cm; Wt 75.0 kg
[2019-10-02 14:36] LABS: HEMATOCRIT 41.1 % (37.0-47.0); HEMOGLOBIN 12.8 g/dl (12.0-16.0); IMMATURE GRANULOCYTES 0.2 % (0.0-5.0); MEAN CELL VOLUME 91.9 fL CALC (80.0-100.0); MEAN CORPUSCULAR HGB 28.6 pG CALC (26.0-32.0); MEAN CORPUSCULAR HGB CONC 31.1 g/dL CAL (32.0-36.0); NEUT# 2.95 thou/uL (2.00-7.15); RED BLOOD COUNT 4.47 mill/uL (4.20-5.60); RED CELL DISTRI WIDTH 11.9 % (11.5-15.5)
[2019-10-02] MEDS ORDERED: ASPIRINCHW 81MG PO (14:36)
[2019-10-02] MEDS ORDERED: DITROPAN5 MG/TA1 PO (14:37)
[2019-10-02] MEDS ORDERED: CALCIUM600 M1 PO (14:40)
[2019-10-02 15:28] LABS: ACT PARTIAL THROMBO TIME 23.7 SECONDS (20.0-32.5); PROTHROMBIN TIME 9.6 SECONDS (9.0-12.5)
[2019-10-02 15:34] LABS: ALBUMIN 4.3 g/dL (3.2-5.0); ALKALINE PHOSPHATASE 79 u/l (38-126); ANION GAP 9 (6-22 (CALC)); BILIRUBIN, TOTAL 0.6 mg/dL (0.0-1.4); BUN 16 mg/dL (8-23); BUN/CREATININE RATIO 22 (12-20 (CALC)); CARBON DIOXIDE 29 mmol/l (22-30); CHLORIDE 104 mmol/l (95-108); CREATININE 0.7 mg/dL (0.5-1.0); GFR > 60 ML/MIN (>=60 (CALC)); GFR FOR AFR.AMER. > 60 ML/MIN (>=60 (CALC)); POTASSIUM 3.8 mmol/l (3.5-5.1); SGOT/AST 25 u/l (9-36); SODIUM 138 mmol/l (137-146); TOTAL PROTEIN 6.9 g/dL (6.3-8.2)
[2019-10-02 18:40] VITALS: BP 146/70
== END 2019-10-02 18:40 | disposition home or self-care (01) ==
LOC: ED 14:08 → ED-I 15:21 → ED 18:40
PROVIDERS: Student in an Organized Health Care Education/Training Program
DX: R07.9 Chest pain, unspecified (principal); I11.0 Hypertensive heart disease with heart failure; I50.9 Heart failure, unspecified; I25.10 Atherosclerotic heart disease of native coronary artery without angina pectoris; I48.91 Unspecified atrial fibrillation; J44.9 Chronic obstructive pulmonary disease, unspecified; I45.10 Unspecified right bundle-branch block; M79.89 Other specified soft tissue disorders; Z99.81 Dependence on supplemental oxygen; Z95.2 Presence of prosthetic heart valve; Z96.651 Presence of right artificial knee joint
CPT/HCPCS: Q9967